=== PATIENT | female | born 1955 | race Caucasian/White ===

== ENCOUNTER 2024-04-24 20:38 | Emergency (ER) | payer MEDICARE, OTHER, SELFPAY ==
[2024-04-24 20:46] VITALS: BP 144/92
--- NOTE | 2024-04-24 22:06 | ED.GENMED ---
Addendum entered and electronically signed by Alexx Park DO 04/24/24 23:16:
Update, labs noted x-ray noted is not appear to be obstructed will have her follow-up with her outpatient physicians
Original Note:
History of Present Illness
General
Chief Complaint: Abdominal Symptoms
Source: patient
Exam Limitations: none
Time Seen by Provider: 04/24/24 21:35
Nursing documentation reviewed up to this point in time: agreed with
History of Present Illness
History of Present Illness:
68-year-old female type II diabetic maintained on glipizide and Mounjaro has had slowly escalating doses of Mounjaro for the past 8 to 10 months, recently she has noticed that nausea vomiting, after taking her dose, dose was decreased from 10 mg to
7.5 mg, and she still has nausea and vomiting, this was after discussion with her bag inspector she was reading online today that she could have gastroparesis this made her anxious and nervous came to the ER to be evaluated she also did not take
her glipizide today she is concerned that she may not needed anymore she not eating or drinking very much, does not much of an appetite blood sugars have been in the normal range she had a cholecystectomy, smokes marijuana, does not drink alcohol
Past History
Past History
ED Past Medical History: HTN, Hypercholesterolemia and NIDDM
ED Past Surgical History: Cholecystectomy
Social History
Tobacco: Non-smoker
Alcohol: None (rarely)
Drug: None and Marijuana
Personal:
Living: with family
Employment: Retired
Family History
Family History: Diabetes (Niece with type 1 diabetes)
Review of Systems
Review of Systems
All Other Systems: Not applicable
Constitutional: Denies fever or fatigue
EENT: Reports no symptoms
Respiratory: Reports no symptoms
Cardiac: Denies chest pain
ABD/GI: Reports nausea and vomiting; Denies abdominal pain
: Reports no symptoms
Musculoskeletal: Reports no symptoms
Skin: Reports no symptoms
Neurological: Reports no symptoms
Phy Exam
Physical Exam
Physical Exam:
Physical Exam
General: no apparent distress, not acutely ill
Neck: No jaundice
Heart: s1/s2 regular rate and rhythm, no murmur. equal radial pulses.
Lungs: no acute respiratory distress. clear bilaterally
Abdomen: Soft nontender
Neuro: alert and oriented. no focal neurological deficits
Skin: no rash
Psychiatric: well kept. interactive and cooperative
Extremities: no edema.
Course
Orders/Labs/Results
Orders:
Orders
04/24/24 20:58
Electrocardiogram (*1) Stat
Reason for Study: Abdominal Pain
EKG- Treatment ONCE
04/24/24 21:47
0.9% Sodium Chloride 1000 ml [Nss] 1,000 ml IV BOLUS
Ondansetron Injectable [Zofran] 4 mg IV NOW STA
04/24/24 21:48
Obstruct Series W/PA Chest [CR Obstruct Series W/pa Chest] Urgent
Comment:
Reason For Exam: vomiting
04/24/24 22:08
Complete Blood Count/With Diff Urgent
Comprehensive Metabolic Panel Urgent
Lipase Urgent
Vital Signs
Initial and Last Documented VS:
Initial Vital Signs
Temp Pulse Resp BP Pulse Ox
98.3 F 108 22 144/92 100
04/24/24 20:46 04/24/24 20:46 04/24/24 20:46 04/24/24 20:46 04/24/24 20:46
Last Documented Vital Signs
Temp Pulse Resp BP Pulse Ox
98.3 F 98 17 144/92 97
04/24/24 20:46 04/24/24 22:00 04/24/24 22:00 04/24/24 20:46 04/24/24 22:00
MDM/Problems Addressed
Differential Diagnosis Includes:
Dehydration gastroparesis electrolyte abnormality medication effect unlikely ACS SBO
MDM/Problems Addressed:
Nausea vomiting
Chronic conditions affecting care: DM and Previous abdomnial surgery
Acute Exacerbation and/or Progression of Chronic Illness: DM and Previous abdomnial surgery
*Radiology
Radiology exam reviewed: preliminary read by ED provider
*Pulse Oximetry
Patient hypoxic: no
*EKG
Interpreted by ED Provider?: Yes
Interpretation: normal
Comparison EKG: no comparison EKG present
Heart Rate: 78
Rate: normal
Rhythm: sinus
Ischemia: no ischemia
*Lead Burner Interpretation
Rate: normal
Interpretation: normal
Heart Rate: 78
Rhythm: sinus
*Critical Care Note
Total Time (30-74mins, 75-104mins- exclusive of procedures): Not Applicable
ED Attending Note
-
Portions of this chart may have been created with voice recognition software.� Occasional wrong word or��sound alike� substitutions may have occurred due to the inherent limitations of voice recognition software.
Discharge Plan
Departure
Prescriptions:
No Action
dicyclomine 20 MG tablet
20 mg PO .4TIMESDAILYPRN
simvastatin 20 MG tablet
20 mg PO DAILY
metformin 1,000 MG tablet
1,000 mg PO DAILY
lisinopril-hydrochlorothiazide 1 EACH tablet
1 ea PO DAILY
B-complex with vitamin C 1 CAPLET tablet
1 cap PO DAILY
calcium carbonate-vitamin D3 1 EACH tablet
1 ea PO BID
cholecalciferol (vitamin D3) 2,000 UNIT tablet
2,000 unit PO DAILY
ondansetron 4 MG tablet,disintegrating
4 mg PO TIDPRN PRN (Reason: nausea/vomiting) Qty: 12 0RF
ondansetron HCl 4 MG tablet
4 mg PO TIDPRN PRN (Reason: nausea)
lorazepam 0.5 MG tablet
0.5 mg PO Q6HPRN PRN (Reason: anxiety) Qty: 12 0RF
Referrals:
Tracie Ritter DO [Family Provider] -
Interventions
Interventions:
*Risk Screen - Suicide Last Done: 04/24/24 20:46
*General Assessment Last Done: 04/24/24 22:14
*Neglect/Abuse Screening Last Done: 04/24/24 20:46
ED- Fall Risk Assessment Last Done: 04/24/24 22:13
*ED COVID-19 Vaccine History Last Done: 04/24/24 22:13
VO-Rnbovw-Hfyduzpfnt Assessment Last Done: 04/24/24 22:13
Discharge Date and Time
Print Language: CUBAN
[2024-04-24] MEDS: ZOFRAN 4 MG IV (22:08)
[2024-04-24] MEDS: NSS 1000 IV (22:08)
[2024-04-24 22:14] VITALS: BMI 27.0
[2024-04-24 22:15] LABS: % Basophils 0.8 % (0-2); % Eosinophils 0.1 % (0-6); % Immature Granulocytes 0.3 % (0-0.5); % Lymphocytes 19.7 % (20.5-51.1); % Monocytes 8.2 % (1.7-9.3); % Neutrophils 70.9 % (42.2-75.2); Absolute Basophils 0.1 10^3/uL (0-0.2); Absolute Lymphocytes 1.4 10^3/uL (1.2-3.4); Absolute Monocytes 0.6 10^3/uL (0.1-0.6); Absolute Neutrophils 5.2 10^3/uL (1.4-6.5); Hematocrit 34.5 % (37.0-47.0); Hemoglobin 11.8 g/dL (12.0-16.0); Mean Corp Hgb Conc. 34.2 g/dL (33.0-37.0); Mean Corpuscular Hgb 28.2 pg (27.0-31.0); Mean Corpuscular Volume 82.3 fL (81.0-99.0); Nucleated Red Blood Cells % 0 %; Platelet Count 383 10^3/uL (130-400); Red Blood Cell Count 4.19 10^6/uL (4.20-5.40); Red Cell Dist. Width 13.7 % (11.5-14.5); White Blood Cell Count 7.3 10^3/uL (4.8-10.8)
[2024-04-24 22:31] LABS: ALT (SGPT) 15 U/L (0-35); AST (SGOT) 24 U/L (14-36); Albumin 4.3 g/dl (3.5-5.0); Alkaline Phosphatase 79 U/L (38-126); Blood Urea Nitrogen 13 mg/dl (7-17); Carbon Dioxide 21 mmol/L (22-30); Chloride 94 mmol/L (98-107); Estimated Creatinine Clearance 62 ml/min; Glucose 109 mg/dl (70-99); Lipase 71 U/L (23-300); Potassium 3.6 mmol/L (3.5-5.1); Sodium 134 mmol/L (135-145); Total Bilirubin 0.8 mg/dl (0.2-1.3); Total Protein 6.9 g/dl (6.3-8.2); eGFR > 60.00
--- NOTE | 2024-04-24 22:44 | ED.GENMED ---
History of Present Illness
General
Chief Complaint: Abdominal Symptoms
Time Seen by Provider: 04/24/24 21:35
Past History
Past History
ED Past Medical History: HTN, Hypercholesterolemia and NIDDM
ED Past Surgical History: Cholecystectomy
Social History
Tobacco: Non-smoker
Alcohol: None (rarely)
Drug: None and Marijuana
Personal:
Living: with family
Employment: Retired
Family History
Family History: Diabetes (Niece with type 1 diabetes)
Course
Orders/Labs/Results
Orders:
Orders
04/24/24 20:58
Electrocardiogram (*1) Stat
Reason for Study: Abdominal Pain
EKG- Treatment ONCE
04/24/24 21:47
0.9% Sodium Chloride 1000 ml [Nss] 1,000 ml IV BOLUS
Ondansetron Injectable [Zofran] 4 mg IV NOW STA
04/24/24 21:48
Obstruct Series W/PA Chest [CR Obstruct Series W/pa Chest] Urgent
Comment:
Reason For Exam: vomiting
04/24/24 22:08
Complete Blood Count/With Diff Urgent
Comprehensive Metabolic Panel Urgent
Lipase Urgent
Abnormal Lab Results
04/24/24
22:08
RBC 4.19 L 10^6/uL
(4.20-5.40)
Hgb 11.8 L g/dL
(12.0-16.0)
Hct 34.5 L %
(37.0-47.0)
Lymphocytes % 19.7 L %
(20.5-51.1)
Sodium 134 L mmol/L
(135-145)
Chloride 94 L mmol/L
(98-107)
Carbon Dioxide 21 L mmol/L
(22-30)
Glucose 109 H mg/dl
(70-99)
04/24/24 22:08
04/24/24 22:08
Vital Signs
Initial and Last Documented VS:
Initial Vital Signs
Temp Pulse Resp BP Pulse Ox
98.3 F 108 22 144/92 100
04/24/24 20:46 04/24/24 20:46 04/24/24 20:46 04/24/24 20:46 04/24/24 20:46
Last Documented Vital Signs
Temp Pulse Resp BP Pulse Ox
98.3 F 98 17 144/92 97
04/24/24 20:46 04/24/24 22:00 04/24/24 22:00 04/24/24 20:46 04/24/24 22:00
MDM/Problems Addressed
Differential Diagnosis Includes:
Medications obstruction gastroparesis
MDM/Problems Addressed:
Nausea vomiting
Chronic conditions affecting care: DM and Previous abdomnial surgery
Acute Exacerbation and/or Progression of Chronic Illness: DM and Previous abdomnial surgery
Update Note
Update Note:
Update labs and EKG noted,
11:15 PM x-ray noted does appear to be obstructed, will discharge with some Zofran and have her follow-up with her outpatient physicians
ED Attending Note
-
Portions of this chart may have been created with voice recognition software.� Occasional wrong word or��sound alike� substitutions may have occurred due to the inherent limitations of voice recognition software.
Discharge Plan
Departure
Patient with high blood pressure during this ER visit?: No
Condition: Good
Instructions: Shields Diet, Nausea and Vomiting, Adult (DC)
Prescriptions:
New
ondansetron 4 mg tablet,disintegrating
4 mg PO Q8H PRN (Reason: nausea and vomiting) Qty: 20 0RF
No Action
dicyclomine 20 MG tablet
20 mg PO .4TIMESDAILYPRN
simvastatin 20 MG tablet
20 mg PO DAILY
metformin 1,000 MG tablet
1,000 mg PO DAILY
lisinopril-hydrochlorothiazide 1 EACH tablet
1 ea PO DAILY
B-complex with vitamin C 1 CAPLET tablet
1 cap PO DAILY
calcium carbonate-vitamin D3 1 EACH tablet
1 ea PO BID
cholecalciferol (vitamin D3) 2,000 UNIT tablet
2,000 unit PO DAILY
ondansetron 4 MG tablet,disintegrating
4 mg PO TIDPRN PRN (Reason: nausea/vomiting) Qty: 12 0RF
ondansetron HCl 4 MG tablet
4 mg PO TIDPRN PRN (Reason: nausea)
lorazepam 0.5 MG tablet
0.5 mg PO Q6HPRN PRN (Reason: anxiety) Qty: 12 0RF
Referrals:
Tracie Ritter DO [Family Provider] -
Interventions
Interventions:
*Risk Screen - Suicide Last Done: 04/24/24 20:46
*General Assessment Last Done: 04/24/24 22:14
*Neglect/Abuse Screening Last Done: 04/24/24 20:46
ED- Fall Risk Assessment Last Done: 04/24/24 22:13
*ED COVID-19 Vaccine History Last Done: 04/24/24 22:13
PW-Fbfvoi-Brvtawaimr Assessment Last Done: 04/24/24 22:13
Discharge Date and Time
Print Language: TURKMEN
[2024-04-24 23:56] VITALS: BP 125/75
== END 2024-04-24 23:59 | disposition home or self-care (01) ==
LOC: EMR 20:38
PROVIDERS: EMERGENCY PHYSICIAN Emergency Medicine; FAMILY PHYSICIAN Family Medicine
DX: R11.2 Nausea with vomiting, unspecified (principal); E11.9 Type 2 diabetes mellitus without complications; E78.00 Pure hypercholesterolemia, unspecified; I10 Essential (primary) hypertension; Z83.3 Family history of diabetes mellitus; Z90.49 Acquired absence of other specified parts of digestive tract
CPT/HCPCS: 99283; 74022; 80053; 83690; 85025; 93005